=== PATIENT | male | born 1975 | race Caucasian/White ===

== ENCOUNTER 2018-06-19 11:05 | Emergency (ER) | payer OTHER ==
[2018-06-19 11:07] VITALS: BMI 29.0
--- NOTE | 2018-06-19 13:13 | ED PDOC ---
HPI:Nausea, Vomiting, Diarrhea Time Seen by Provider: 06/19/18 11:50 Chief Complaint (Nursing): Abdominal Pain Chief Complaint (Provider): Diarrhea History Per: Director [employer] ([id number] [place] citizen of [place]) History/Exam Limitations: no limitations Onset/Duration Of Symptoms: Days Current Symptoms Are (Timing): Still Present Have you had recent travel within the past 21 days to any of the following countries: [place], [place], [place] or [place]?: No Associated Symptoms: Diarrhea Additional History Per: Patient Additional Complaint(s): 43yo male, no past medical history, comes to ER reporting diarrhea for the past 3 days. He also reports associated nausea, generalized abdominal discomfort, and subjective fevers, but denies any vomiting. He denies taking any medications for his symptoms. No additional complaints. PMD: None Past Medical History Reviewed: Historical Data, Nursing Documentation, Vital Signs Vital Signs: Last Vital Signs Temp 99.4 F 06/19/18 11:07 Pulse 104 H 06/19/18 11:07 Resp 18 06/19/18 11:07 BP 147/83 06/19/18 11:07 Pulse Ox 99 06/19/18 11:07 - Medical History PMH: No Chronic Diseases - Surgical History Surgical History: Appendectomy - Family History Family History: States: No Known Family Hx - Immunization History Hx Tetanus Toxoid Vaccination: No Hx Influenza Vaccination: No Hx Pneumococcal Vaccination: No - Home Medications Home Medications: Ambulatory Orders Medication Instructions Recorded Ciprofloxacin HCl [Cipro] 500 mg PO BID #20 tab 06/19/18 Metronidazole [Flagyl] 500 mg PO TID #30 tablet 06/19/18 Ondansetron [Zofran] 4 mg PO Q6H PRN #6 tab 06/19/18 - Allergies Allergies/Adverse Reactions: Allergies Allergy/AdvReac Type Severity Reaction Status Date / Time No Known Allergies Allergy Verified 06/19/18 11:47 Review of Systems ROS Statement: Except As Marked, All Systems Reviewed And Found Negative Constitutional: Positive for: Fever (subjective). Negative for: Chills Gastrointestinal: Positive for: Nausea, Diarrhea, Other (abdominal discomfort). Negative for: Vomiting Physical Exam - Reviewed Nursing Documentation Reviewed: Yes Vital Signs Reviewed: Yes - Physical Exam Appears: Positive for: Non-toxic, No Acute Distress Head Exam: Positive for: ATRAUMATIC, NORMAL INSPECTION, NORMOCEPHALIC Skin: Positive for: Normal Color, Warm, DRY Eye Exam: Positive for: Normal appearance Neck: Positive for: Normal, Painless ROM Cardiovascular/Chest: Positive for: Regular Rate, Rhythm Respiratory: Positive for: CNT, Normal Breath Sounds Gastrointestinal/Abdominal: Positive for: Normal Exam, Bowel Sounds, Soft. Negative for: Tenderness, Guarding, Rebound Back: Positive for: Normal Inspection Extremity: Positive for: Normal ROM Neurological/Psych: Positive for: Awake, Alert, Normal Tone, Oriented (x 3) - Laboratory Results Result Diagrams: 06/19/18 13:43 06/19/18 13:43 - ECG O2 Sat by Pulse Oximetry: 99 (RA) Pulse Ox Interpretation: Normal Medical Decision Making Medical Decision Makinyo male with diarrhea x 3 days rule out colitis Plan: -- IV fluids -- Zofran 4mg IV -- Urinalysis -- Labs 1600 Labs reviewed, no clinically significant abnormalities noted. 1655 CT Abdomen/Pelvis FINDINGS: LOWER THORAX: Mild bilateral basilar dependent atelectasis. Upper limits size heart. No pulmonary vascular congestion, pleural or pericardial effusion evident. LIVER: Diminished attenuation is appreciated throughout the liver compatible hepatic steatosis. No mass or definite intrahepatic biliary dilatation encountered. GALLBLADDER AND BILE DUCTS: Gallbladder is mildly distended and otherwise appears unremarkable. No significant dilatation of the common bile duct. PANCREAS: Unremarkable. No gross lesion or ductal dilatation. SPLEEN: Unremarkable. ADRENALS: Unremarkable. No mass. KIDNEYS AND URETERS: Unremarkable. No hydronephrosis. No solid mass. VASCULATURE: Unremarkable. No aortic aneurysm. No aortic atherosclerotic calcification or mural plaque present. BOWEL: No bowel obstruction. Limited distention of the stomach by gas and limited residual fluid. Fluid is seen within large and small bowel loops with thickening of the ascending colon questioned, suspicious for segmental colitis. No definite pericolic reaction however. Clinically correlate further. APPENDIX: Prior appendectomy likely. Clinically correlate. PERITONEUM: Unremarkable. No free fluid. No free air. LYMPH NODES: Unremarkable. No enlarged lymph nodes. BLADDER: Unremarkable. REPRODUCTIVE: Unremarkable. BONES: No acute fracture. OTHER FINDINGS: None. IMPRESSION: Findings suspicious for limited ascending colonic segmental colitis. Liquified fecal material seen throughout the colon as well as small bowel. No significant pericolic reaction. No ascites or mesenteric edema. No bowel obstruction. Hepatic steatosis. Patient informed of CT findings. Reports feeling better, tolerated PO intake and is stable for discharge home. instructed to follow up with pcp/gi doctor forfollow up Scribe Attestation: Documented by Paige Blanco acting as a scribe for Franky English MD. Provider Attestation: All medical record entries made by the Scribe were at my direction and personally dictated by me. I have reviewed the chart and agree that the record accurately reflects my personal performance of the history, physical exam, medical decision making, and the department course for this patient. I have also personally directed, reviewed, and agree with the discharge instructions and disposition. Disposition - Clinical Impression Clinical Impression: Abdominal pain, Colitis - Patient ED Disposition Is Patient to be Admitted: No Counseled Patient/Family Regarding: Studies Performed, Diagnosis, Need For Followup - Disposition Referrals: [facility] [Outside] [facility] [Outside] Disposition: Routine/Home Disposition Time: 16:59 Condition: IMPROVED Additional Instructions: follow up with the clinic in 1-2 days return to the ED with any worsening or concerning symptoms Prescriptions: Ciprofloxacin HCl [Cipro] 500 mg PO BID #20 tab Metronidazole [Flagyl] 500 mg PO TID #30 tablet Ondansetron [Zofran] 4 mg PO Q6H PRN #6 tab PRN Reason: Nausea/Vomiting Instructions: Colitis, Stomach Ache and Stomach Upset Forms: [employer] (Danish), [employer] (Danish) Print Language: [place]
[2018-06-19] MEDS ORDERED: Sodium Chloride 0.9% 1,000 ML IV STA (13:15)
[2018-06-19 13:47] LABS: BASO % 0.2 % (0.0-2.0); EOS % 0.1 % (0.0-4.0); HEMOGLOBIN 15.8 g/dL (12.0-18.0); LYMPH # 1.4 K/uL (1.0-4.3); LYMPH % 17.8 % (20.0-40.0); MEAN CELL VOLUME 87.9 fl (80.0-94.0); MEAN CORPUSCULAR HGB CONC 34.1 g/dL (33.0-37.0); MEAN PLATELET VOLUME 7.5 fl (7.2-11.7); MONO # 0.6 K/uL (0.0-0.8); MONO % 7.2 % (0.0-10.0); NEUT # 5.9 K/uL (1.8-7.0); NEUT % 74.7 % (50.0-75.0); RBC 5.27 Mil/uL (4.40-5.90); WHITE BLOOD COUNT 7.9 K/uL (4.8-10.8)
[2018-06-19 13:58] LABS: ALB/GLOB RATIO 1.2 (1.0-2.1); ALBUMIN 4.8 g/dL (3.5-5.0); ALT/SGPT 143 U/L (21-72); AST/SGOT 55 U/L (17-59); BLOOD UREA NITROGEN 14 mg/dl (9-20); CALCIUM 9.4 mg/dL (8.4-10.2); GFR NON-AFRICAN AMERICAN > 60
[2018-06-19 15:48] VITALS: BP 127/85; PULSE 97; RESP 20; TEMP 99.1
[2018-06-19] MEDS ORDERED: Iohexol 300 100 ML IJ ONE (15:49)
[2018-06-19] MEDS ORDERED: Sodium Chloride 0.9% 50 ML IV ONE (15:50)
[2018-06-19 16:07] VITALS: O2SAT 99
[2018-06-19 16:21] LABS: SQUAMOUS EPITHIAL < 1 /hpf (0-5); URINE BILIRUBIN NEGATIVE (NEGATIVE); URINE BLOOD NEGATIVE (NEGATIVE); URINE CLARITY CLEAR (Clear); URINE COLOR YELLOW (YELLOW); URINE GLUCOSE (UA) NEG (NEGATIVE); URINE HYALINE CAST 0-2 /hpf (0-2); URINE LEUKOCYTE ESTERASE NEG Leu/uL (Negative); URINE PROTEIN 30 mg/dL (NEGATIVE); URINE UROBILINOGEN 0.2-1.0 mg/dL (0.2-1.0)
--- NOTE | 2018-06-19 16:51 | CT ---
Date of service: 06/19/2018 PROCEDURE: CT Abdomen and Pelvis with contrast HISTORY: ABD PAIN COMPARISON: None. TECHNIQUE: Following the intravenous administration of iodinated contrast material, a CT examination of the abdomen and pelvis was performed from the domes of the diaphragms to the symphysis pubis with reformatted datasets provided in axial, sagittal and coronal planes. Oral contrast was not administered as per referring physician request. Contrast dose: Omnipaque 300, 95 cc Radiation dose: Total exam DLP = 913.79 mGy-cm. This CT exam was performed using one or more of the following dose reduction techniques: Automated exposure control, adjustment of the mA and/or kV according to patient size, and/or use of iterative reconstruction technique. FINDINGS: LOWER THORAX: Mild bilateral basilar dependent atelectasis. Upper limits size heart. No pulmonary vascular congestion, pleural or pericardial effusion evident. LIVER: Diminished attenuation is appreciated throughout the liver compatible hepatic steatosis. No mass or definite intrahepatic biliary dilatation encountered. GALLBLADDER AND BILE DUCTS: Gallbladder is mildly distended and otherwise appears unremarkable. No significant dilatation of the common bile duct. PANCREAS: Unremarkable. No gross lesion or ductal dilatation. SPLEEN: Unremarkable. ADRENALS: Unremarkable. No mass. KIDNEYS AND URETERS: Unremarkable. No hydronephrosis. No solid mass. VASCULATURE: Unremarkable. No aortic aneurysm. No aortic atherosclerotic calcification or mural plaque present. BOWEL: No bowel obstruction. Limited distention of the stomach by gas and limited residual fluid. Fluid is seen within large and small bowel loops with thickening of the ascending colon questioned, suspicious for segmental colitis. No definite pericolic reaction however. Clinically correlate further. APPENDIX: Prior appendectomy likely. Clinically correlate. PERITONEUM: Unremarkable. No free fluid. No free air. LYMPH NODES: Unremarkable. No enlarged lymph nodes. BLADDER: Unremarkable. REPRODUCTIVE: Unremarkable. BONES: No acute fracture. OTHER FINDINGS: None. IMPRESSION: Findings suspicious for limited ascending colonic segmental colitis. Liquified fecal material seen throughout the colon as well as small bowel. No significant pericolic reaction. No ascites or mesenteric edema. No bowel obstruction. Hepatic steatosis.
== END 2018-06-19 17:19 | disposition home or self-care (01) ==
LOC: H.ER 11:05
DX: K52.9 Noninfective gastroenteritis and colitis, unspecified (principal); R10.9 Unspecified abdominal pain
CPT/HCPCS: 74177; 80053; 81003; 85025; 87086; 96360; 99284; J2405; J7030; Q9967